=== PATIENT | female | born 1980 | race Hispanic/Latino ===

== ENCOUNTER 2017-10-24 18:16 | Emergency (ER) | payer OTHER ==
[2017-10-24 19:03] LABS: Hematocrit 35.4 % (36.0-47.0); Mean Platelet Volume 6.7 fL (7.4-10.4); Red Blood Cell (RBC) Count 4.74 mill/uL (4.20-5.40); White Blood Cell (WBC) Count 11.4 thou/uL (4.8-10.8)
[2017-10-24 19:29] LABS: #Eosinphils 0.4 thou/uL (0.0-0.7); #Lymphocytes 3.6 thou/uL (1.20-3.40); #Monocytes 0.3 thou/uL (0.11-0.59); %Basophils 0.3 % (0.0-1.0); %Eosinophils 3.7 % (0.0-10.0); %Lymphocytes 31.6 % (21.0-51.0); %Monocytes 2.9 % (0.0-10.0); Anisocytosis SLIGHT = 6-15 cells (100X) (0-5/hpf); Microcytosis SLIGHT = 6-15 cells (100X) (0-5/hpf)
--- NOTE | 2017-10-24 22:32 | ULT ---
PELVIC ULTRASOUND: History: Left lower pelvic pain. Technique: Multiple longitudinal and transverse images of the pelvis was obtained using a multihertz curvilinear transabdominal as well as multihertz endovaginal transducer. Real-time, color flow, and s pectral waveform doppler analysis used to evaluate the pelvis. FINDINGS: The uterus is of normal contour, axis, and size measuring 10.2 x 4.8 x 5.2 cm. The endometrium of has double wall thickness of 16 mm. No evidence of uterine masses or lesions seen. Both ovaries visualized and demonstrate good blood flow. Right ovary measures 3.2 x 3.0 cm while the left ovary measures 3.2 x 2.8 cm. No obvious evidence of ovarian mass is seen. IMPRESSION: Normal pelvic ultrasound. POS: [facility]
== END 2017-10-24 23:35 | disposition home or self-care (01) ==
LOC: ERS 18:16
DX: N93.8 Other specified abnormal uterine and vaginal bleeding (principal); Z79.84 Long term (current) use of oral hypoglycemic drugs
CPT/HCPCS: 36415; 76856; 84703; 85025; 87491; 87591